=== PATIENT | female | born 1975 | race Two or more races ===

== ENCOUNTER 2017-01-11 18:39 | Emergency (ER) | payer MEDICAID, OTHER ==
[2017-01-11 18:49] VITALS: BP 132/83
[2017-01-11 19:07] LABS: BASOPHILS # (AUTO) 0.1 10^3/uL (0.0-0.1); BASOPHILS % (AUTO) 0.8 %; EOSINOPHILS # (AUTO) 0.2 10^3/uL (0.0-0.7); EOSINOPHILS % (AUTO) 2.5 %; HCT - HEMATOCRIT 41.9 % (37.0-47.0); HGB - HEMOGLOBIN 14.4 g/dL (12.0-16.0); LYMPHOCYTES # (AUTO) 2.4 10^3/uL (1.5-3.5); LYMPHOCYTES % (AUTO) 30.5 %; MEAN CORPUSCULAR HEMOGLOBIN 31.9 pg (27.0-31.0); MEAN CORPUSCULAR HGB CONC 34.3 g/dL (32.0-36.0); MEAN CORPUSCULAR VOLUME 92.9 fL (81.0-99.0); MONOCYTES # (AUTO) 0.4 10^3/uL (0.0-1.0); MONOCYTES % (AUTO) 5.3 %; NEUTROPHILS # (AUTO) 4.7 10^3/uL (1.5-6.6); NEUTROPHILS % (AUTO) 60.9 %; RED BLOOD COUNT 4.51 10^6/uL (4.20-5.40); RED CELL DISTRIBUTION WIDTH 13.1 % (12.0-15.0); UNCORRECTED WHITE BLOOD COUNT 7.7 x10^3/uL; WHITE BLOOD COUNT 7.7 x10^3/uL (4.8-10.8)
[2017-01-11 19:14] LABS: ALBUMIN/GLOBULIN RATIO 1.4 (1.0-2.2); BILIRUBIN,TOTAL 0.6 mg/dL (0.2-1.0); CALCIUM 9.2 mg/dL (8.5-10.3); CREATININE 0.8 mg/dL (0.4-1.0); POTASSIUM 3.5 mmol/L (3.5-5.0); TOTAL PROTEIN 7.7 g/dL (6.7-8.2)
[2017-01-11 19:45] LABS: BILIRUBIN,URINE NEGATIVE (NEGATIVE); PH,URINE 5.5 PH (5.0-7.5)
[2017-01-11 19:48] LABS: HCG UR QUAL NEGATIVE; UA CHARGE (STRIP ONLY) YES; UR CULTURE IF IND NOT INDICATED
--- NOTE | 2017-01-11 19:52 | ED Physician Documentation ---
PD HPI ABD PAIN - Stated complaint Stated Complaint: STOMACH PX - Chief complaint Chief Complaint: Abd Pain - History obtained from History obtained from: Patient, Friend - History of Present Illness Timing - onset: How many weeks ago (several) Timing - duration: Weeks Timing - details: Gradual onset, Waxing and waning Pain level max: 5 Pain level now: 3 Quality: Aching, Dull, Pain Improved by: Other (nothing) Worsened by: Eating Associated symptoms: Nausea. No: Fever, Vomiting, Hematemesis, Diarrhea, Constipation, Melena, Hematochezia, Dysuria Similar symptoms before: Has not had sx before Recently seen: Not recently seen - Additional information Additional information: Patient is a 41-year-old female who presents to the emergency department with epigastric abdominal pain for the past several weeks. Worse with eating or drinking. She recently returned from a visit to [place]. No fever. No diarrhea. Review of Systems Constitutional: denies: Fever, Chills GI: denies: Vomiting, Diarrhea, Hematemesis, Bloody / black stool : denies: Now EGA Skin: denies: Rash PD PAST MEDICAL HISTORY - Past Medical History Past Medical History: Yes Cardiovascular: Arrhythmia (SVT) Respiratory: None Neuro: Headache/migraine - Past Surgical History Past Surgical History: Yes HEENT: Tonsil/Adenoidectomy - Present Medications Home Medications: Ambulatory Orders Medication Instructions Recorded Confirmed Famotidine [Pepcid] 20 mg PO BID #60 tablet 01/11/17 Omeprazole [PriLOSEC] 20 mg PO DAILY #30 capsule 01/11/17 Sucralfate [Carafate] 1 gm PO ACHS #60 tablet 01/11/17 - Allergies Allergies/Adverse Reactions: Allergies Allergy/AdvReac Type Severity Reaction Status Date / Time No Known Drug Allergies Allergy Verified 03/04/16 09:11 - Social History Does the pt smoke?: No Smoking Status: Never smoker Does the pt drink ETOH?: Yes Does the pt have substance abuse?: No - Immunizations Immunizations are current?: Yes PD ED PE NORMAL - Vitals Vital signs reviewed: Yes - General General: Alert and oriented X 3, No acute distress, Well developed/nourished - HEENT HEENT: Moist mucous membranes - Neck Neck: Supple, no meningeal sign - Cardiac Cardiac: RRR, Strong equal pulses - Respiratory Respiratory: No respiratory distress, Clear bilaterally - Abdomen Abdomen: Soft, Non distended, Other (Tender palpation epigastric and right upper quadrant without peritoneal signs) - Back Back: No CVA TTP, No spinal TTP - Derm Derm: Warm and dry, No rash - Neuro Neuro: Alert and oriented X 3 - Psych Psych: Normal mood, Normal affect Results - Vitals Vitals: Vital Signs - 24 hr 01/11/17 18:45 Temperature 36.9 C Heart Rate 101 H Respiratory 15 Rate Blood Pressure 132/83 H O2 Saturation 100 Oxygen O2 Source Room air - Labs Labs: Laboratory Tests 01/11/17 01/11/17 01/11/17 18:51 18:51 19:36 WBC 7.7 RBC 4.51 Hgb 14.4 Hct 41.9 MCV 92.9 MCH 31.9 H MCHC 34.3 RDW 13.1 Plt Count 228 MPV 8.0 Neut # 4.7 Lymph # 2.4 Jerome # 0.4 Eos # 0.2 Baso # 0.1 Absolute Nucleated RBC 0.00 Nucleated RBCs 0.0 Sodium 139 Potassium 3.5 Chloride 104 Carbon Dioxide 31 Anion Gap 4.0 L BUN 17 Creatinine 0.8 Estimated GFR (MDRD) 79 L Glucose 98 Calcium 9.2 Total Bilirubin 0.6 AST 18 ALT 15 Alkaline Phosphatase 59 Total Protein 7.7 Albumin 4.5 Globulin 3.2 Albumin/Globulin Ratio 1.4 Lipase 64 H Urine Color YELLOW Urine Clarity CLEAR Urine pH 5.5 Ur Specific [place] 1.025 Urine Protein NEGATIVE Urine Glucose (UA) NEGATIVE Urine Ketones NEGATIVE Urine Occult Blood NEGATIVE Urine Nitrite NEGATIVE Urine Bilirubin NEGATIVE Urine Urobilinogen 0.2 (NORMAL) Ur Leukocyte Esterase NEGATIVE Ur Microscopic Review NOT INDICATED Urine Culture Comments NOT INDICATED Urine HCG, Qual NEGATIVE - Rads (name of study) RUQ US Radiology: Prelim report reviewed, EMP read contemporaneously, See rad report ( normal) PD MEDICAL DECISION MAKING - ED course Complexity details: reviewed results, re-evaluated patient, considered differential, d/w patient ED course: Patient is a 41-year-old female who presents to the emergency department with what appears to be epigastric pain, likely secondary to gastroesophageal reflux disease versus peptic ulcer disease. Symptoms resolved with GI cocktail. No acute findings on right upper quadrant ultrasound. She is well-appearing, nontoxic. Afebrile. Will place on a PPI and H2 heidi for home and have her follow-up with her doctor. Counseled regarding dietary changes. Patient counseled regarding signs and symptoms for which I believe and urgent re- evaluation would be necessary. Patient with good understanding of and agreement to plan and is comfortable going home at this time This document was made in part using voice recognition software. While efforts are made to proofread this document, sound alike and grammatical errors may occur. Departure - Departure Disposition: Home, Self Care Clinical Impression: Abdominal pain Qualifiers: Abdominal location: epigastric Qualified Code(s): R10.13 - Epigastric pain Gastritis Qualifiers: Gastritis type: unspecified gastritis Chronicity: acute Gastritis bleeding: without bleeding Qualified Code(s): K29.00 - Acute gastritis without bleeding Condition: Good Instructions: ED PUD Vs Gastritis Follow-Up: your,doctor in 1 week [Other] Prescriptions: Sucralfate [Carafate] 1 gm PO ACHS #60 tablet Famotidine [Pepcid] 20 mg PO BID #60 tablet Omeprazole [PriLOSEC] 20 mg PO DAILY #30 capsule Comments: Return if you worsen. You can use Tylenol as needed for pain. This will take some time for your stomach to heal. Avoid anything spicy, fried, acidic in your diet. Discharge Date/Time: 01/11/17 20:53
[2017-01-11] MEDS ORDERED: FAMOTIDINE 20 MG TABLET ONE (20:00)
[2017-01-11] MEDS ORDERED: SUCRALFATE 1 GM/10 ML UDC ONE (20:00)
[2017-01-11] MEDS: FAMOTIDINE 20 MG TABLET PO STA (20:01)
[2017-01-11] MEDS ORDERED: LIDOCAINE VISCOUS 2% 15 ML UDC MM ONE (20:01)
[2017-01-11] MEDS ORDERED: MAG HYDROX/AL HYDROX/SIMETH 30 ML UDC ONE (20:01)
[2017-01-11] MEDS: MAG HYDROX/AL HYDROX/SIMETH 30 ML UDC PO STA (20:02)
[2017-01-11] MEDS: SUCRALFATE 1 GM/10 ML UDC PO STA (20:02)
[2017-01-11] MEDS: LIDOCAINE VISCOUS 2% 15 ML UDC MM STA (20:02)
[2017-01-11] MEDS ORDERED: PANTOPRAZOLE 40 MG VIAL ONE (20:47)
[2017-01-11] MEDS: PANTOPRAZOLE 40 MG VIAL IVP STA (20:51)
--- NOTE | 2017-01-11 21:02 | Ultrasound Preliminary Report ---
Exam: US ABDOMEN LIMITED IMPRESSION: Normal. No cholelithiasis or cholecystitis. [facility] SITE ID: [id number]
--- NOTE | 2017-01-11 21:05 | Ultrasound Report ---
EXAM: ABDOMEN ULTRASOUND LIMITED, RUQ EXAM DATE: 01/11/2017 08:44 PM. CLINICAL HISTORY: RUQ pain. COMPARISON: None. TECHNIQUE: Real-time scanning was performed with static images obtained. FINDINGS: Liver: Normal in size and echotexture. 15.3 cm. Main portal vein flow: Hepatopetal. Gallbladder: Contracted. No stones, wall thickening, or sonographic Mckeon's sign. Biliary System: CBD measures 5 mm. No intrahepatic or extrahepatic ductal dilatation. Other: The visualized pancreas and right kidney are unremarkable. No free fluid. IMPRESSION: Normal. No cholelithiasis or cholecystitis. [facility] Referring Provider Line: [phone] SITE ID: [id number]
== END 2017-01-11 20:53 | disposition home or self-care (01) ==
LOC: ED 18:39
DX: R10.13 Epigastric pain (principal); K29.00 Acute gastritis without bleeding
CPT/HCPCS: 36415; 76705; 80053; 81001; 81003; 81025; 83690; 85025; 87086; 96374; 99283; 99284

== ENCOUNTER 2017-06-24 17:29 | Emergency (ER) | payer BC, OTHER ==
[2017-06-24 17:55] VITALS: BP 126/80
--- NOTE | 2017-06-24 18:13 | ED Physician Documentation ---
History of Present Illness - Stated complaint Stated Complaint: FEVER/RASH - Chief complaint Chief Complaint: General - History obtained from History obtained from: Patient - History of Present Illness Timing: Other (2 weeks of aches and chills and just feeling off and now 2 days of an itchy painful rash on the left side of her groin she has had a single sexual partner recently and is concerned about STDs.) Review of Systems Constitutional: reports: Chills, Fatigue Cardiac: denies: Chest pain / pressure, Palpitations Respiratory: reports: Cough GI: denies: Abdominal Pain, Vomiting PD PAST MEDICAL HISTORY - Past Medical History Cardiovascular: Arrhythmia (SVT) Respiratory: None Neuro: Headache/migraine - Past Surgical History Past Surgical History: Yes HEENT: Tonsil/Adenoidectomy - Present Medications Home Medications: Ambulatory Orders Medication Instructions Recorded Confirmed Acyclovir 400 mg PO TID #30 tablet 06/24/17 - Allergies Allergies/Adverse Reactions: Allergies Allergy/AdvReac Type Severity Reaction Status Date / Time No Known Drug Allergies Allergy Verified 06/24/17 17:45 - Social History Does the pt smoke?: No Smoking Status: Never smoker Does the pt drink ETOH?: Yes Does the pt have substance abuse?: No - Immunizations Immunizations are current?: Yes PD ED PE NORMAL - Vitals Vital signs reviewed: Yes - General General: Alert and oriented X 3, No acute distress - HEENT HEENT: Pharynx benign - Cardiac Cardiac: RRR, No murmur - Respiratory Respiratory: No respiratory distress, Clear bilaterally - Abdomen Abdomen: Non tender - Female Female : Management Rep present (Ivy Vedrin RN), Other (Genital herpes on the left labia, no pelvic tenderness or discharge.) - Neuro Neuro: Alert and oriented X 3, Normal speech - Psych Psych: Normal mood, Normal affect Results - Vitals Vitals: Vital Signs - 24 hr 06/24/17 17:36 Temperature 37.3 C Heart Rate 105 H Respiratory 20 Rate Blood Pressure 126/80 O2 Saturation 98 Oxygen O2 Source Room air Departure - Departure Disposition: 01 Home, Self Care Clinical Impression: Genital herpes Qualifiers: Herpes simplex infection site: vulvovaginitis Qualified Code(s): A60.04 - Herpesviral vulvovaginitis Condition: Good Record reviewed to determine appropriate education?: Yes Instructions: ED Herpes Simplex Virus Type 2 Prescriptions: Acyclovir 400 mg PO TID #30 tablet Comments: Call your doctor to arrange a follow-up appointment, make the next available appointment. In the interim, return anytime if worse or if new symptoms develop.
[2017-06-24 18:42] LABS: BILIRUBIN,URINE NEGATIVE (NEGATIVE); GLUCOSE, URINE (UA) NEGATIVE (NEGATIVE); KETONES,URINE (UA) TRACE mg/dL (NEGATIVE); LEUKOCYTE ESTERASE, URINE NEGATIVE (NEGATIVE); NITRITE,URINE NEGATIVE (NEGATIVE); OCCULT BLOOD,URINE NEGATIVE (NEGATIVE); PROTEIN,URINE NEGATIVE (NEGATIVE); UROBILINOGEN,URINE 0.2 (NORMAL) E.U./dL (NORMAL)
[2017-06-24 18:48] LABS: CLARITY,URINE CLEAR (CLEAR)
== END 2017-06-24 18:41 | disposition home or self-care (01) ==
LOC: ED 17:29
DX: A60.04 Herpesviral vulvovaginitis (principal)
CPT/HCPCS: 81001; 81003; 87086; 87491; 87591; 99283

== ENCOUNTER 2017-11-02 07:07 | Emergency (ER) | payer BC ==
--- NOTE | 2017-11-02 07:57 | ED Physician Documentation ---
PD HPI CHEST PAIN - Stated complaint Stated Complaint: CHEST PX - Chief complaint Chief Complaint: Cardiac - History obtained from History obtained from: Patient - History of Present Illness Timing - onset: How many days ago (3) Timing - onset during: Sleep, Rest Timing - details: Abrupt onset, Still present (lessened once she got up) Quality: Pressure, Aching Location: Substernal, Epigastric Associated symptoms: Shortness of air. No: Nausea, Vomiting, Feeling faint / dizzy, General Weakness Similar symptoms before: Has not had sx before (had had irregular heart beat in the past and Morton palsy, wiht concern of it being lacunar infarct instead ( questaion on MRI) so had CVA workup including ECHO and now just had stress test as part of that. Had not been having any chest pain. Used to take long walks but had not been exercising lately due to the question of CVA and was to limit exercise pending workup.) Recently seen: Clinic (had stress test 2 days ago and has not felt well since. Having some substernal discomfort and weakness. Had the stress test as further testing post Morton vs lacunar stroke recently, with cardiac workup ongoing. She had not heard results on stress test.) Review of Systems Constitutional: denies: Fever, Chills, Myalgias Nose: denies: Rhinorrhea / runny nose, Congestion Throat: denies: Sore throat Cardiac: reports: Chest pain / pressure (today). denies: Palpitations, Pedal edema, Calf pain Respiratory: denies: Dyspnea, Cough GI: denies: Abdominal Pain, Nausea, Vomiting : denies: Dysuria, Frequency Skin: denies: Rash, Lesions Musculoskeletal: denies: Neck pain, Back pain PD PAST MEDICAL HISTORY - Past Medical History Past Medical History: Yes Cardiovascular: Arrhythmia Respiratory: None - Past Surgical History Past Surgical History: Yes HEENT: Tonsil/Adenoidectomy - Present Medications Home Medications: Ambulatory Orders Medication Instructions Recorded Confirmed Acyclovir 400 mg PO TID #30 tablet 06/24/17 Famotidine [Pepcid] 20 mg PO ONCE #30 tablet 11/02/17 Lidocaine Viscous 2% [Xylocaine 5 ml PO Q4H PRN #1 bottle 11/02/17 Viscous 2%] - Allergies Allergies/Adverse Reactions: Allergies Allergy/AdvReac Type Severity Reaction Status Date / Time No Known Drug Allergies Allergy Verified 06/24/17 17:45 - Social History Does the pt smoke?: No Smoking Status: Never smoker Does the pt drink ETOH?: Yes Does the pt have substance abuse?: No - Family History Family history: reports: Non contributory - Immunizations Immunizations are current?: Yes PD ED PE NORMAL - Vitals Vital signs reviewed: Yes - General General: Alert and oriented X 3, No acute distress, Well developed/nourished - HEENT HEENT: Moist mucous membranes, Pharynx benign - Neck Neck: Supple, no meningeal sign, No adenopathy - Cardiac Cardiac: RRR, No murmur - Respiratory Respiratory: No respiratory distress, Clear bilaterally - Abdomen Abdomen: Normal bowel sounds, Soft, Non distended, No organomegaly, Other (mild tender epigastric) - Back Back: No CVA TTP - Derm Derm: Normal color, Warm and dry - Extremities Extremities: No deformity, No tenderness to palpate, Normal ROM s pain, No edema , No calf tenderness / cord - Neuro Neuro: Alert and oriented X 3, No motor deficit, Normal speech Results - Vitals Vitals: Vital Signs - 24 hr 11/02/17 11/02/17 07:10 10:18 Temperature 36.3 C L Heart Rate 94 79 Respiratory 18 12 Rate Blood Pressure 120/81 H 112/86 H O2 Saturation 100 100 Oxygen O2 Source Room air - Labs Labs: Laboratory Tests 11/02/17 11/02/17 11/02/17 08:12 08:12 08:12 WBC 7.7 RBC 4.26 Hgb 13.3 Hct 39.9 MCV 93.7 MCH 31.1 H MCHC 33.2 RDW 12.7 Plt Count 211 MPV 8.2 Neut # (Auto) 5.5 Lymph # (Auto) 1.4 L Stephens # (Auto) 0.4 Eos # (Auto) 0.3 Baso # (Auto) 0.0 Absolute Nucleated RBC 0.00 Nucleated RBC % 0.1 Sodium 136 Potassium 4.8 Chloride 102 Carbon Dioxide 28 Anion Gap 6.0 BUN 12 Creatinine 0.6 Estimated GFR (MDRD) 110 Glucose 98 Calcium 8.9 Magnesium 2.0 Total Bilirubin 0.6 AST 32 ALT 42 Alkaline Phosphatase 47 Troponin I < 0.04 B-Natriuretic Peptide Total Protein 7.1 Albumin 3.8 Globulin 3.3 Albumin/Globulin Ratio 1.2 Lipase 59 H 11/02/17 08:12 WBC RBC Hgb Hct MCV MCH MCHC RDW Plt Count MPV Neut # (Auto) Lymph # (Auto) Stephens # (Auto) Eos # (Auto) Baso # (Auto) Absolute Nucleated RBC Nucleated RBC % Sodium Potassium Chloride Carbon Dioxide Anion Gap BUN Creatinine Estimated GFR (MDRD) Glucose Calcium Magnesium Total Bilirubin AST ALT Alkaline Phosphatase Troponin I B-Natriuretic Peptide 15 Total Protein Albumin Globulin Albumin/Globulin Ratio Lipase PD MEDICAL DECISION MAKING - ED course Complexity details: re-evaluated patient (felt much better after GI cocktail. ) , considered differential, d/w patient - Sepsis Event Vital Signs: Vital Signs - 24 hr 11/02/17 11/02/17 07:10 10:18 Temperature 36.3 C L Heart Rate 94 79 Respiratory 18 12 Rate Blood Pressure 120/81 H 112/86 H O2 Saturation 100 100 Oxygen O2 Source Room air Departure - Departure Disposition: 01 Home, Self Care Clinical Impression: Chest pain due to GERD Chest pain Qualifiers: Chest pain type: precordial pain Qualified Code(s): R07.2 - Precordial pain Condition: Stable Record reviewed to determine appropriate education?: Yes Instructions: ED Chest Pain NonCardiac, ED GERD Follow-Up: Jackelyn Mercedes MD [Primary Care Provider] - Prescriptions: Famotidine [Pepcid] 20 mg PO ONCE #30 tablet Lidocaine Viscous 2% [Xylocaine Viscous 2%] 5 ml PO Q4H PRN #1 bottle PRN Reason: Pain Comments: Your tests today look good without any signs of heart injury or heart failure and your chest x-ray does not show any signs of lung process going on. I presume your pain is related to irritated stomach and esophagus. Take famotidine daily for the next 2-3 weeks. Add antacids such as Mylanta or Maalox if needed for discomfort and you can add lidocaine to that if needed. Recheck if not better over the next few days. Forms: Activity restrictions Discharge Date/Time: 11/02/17 10:44
[2017-11-02] MEDS ORDERED: LIDOCAINE VISCOUS 2% 15 ML UDC MM STA (08:10)
[2017-11-02] MEDS ORDERED: MAG HYDROX/AL HYDROX/SIMETH 30 ML UDC PO STA (08:10)
[2017-11-02] MEDS ORDERED: KETOROLAC 60 MG/2 ML VIAL IVP STA (08:10)
[2017-11-02 08:28] LABS: BASOPHILS % (AUTO) 0.6 %; EOSINOPHILS # (AUTO) 0.3 10^3/uL (0.0-0.7); EOSINOPHILS % (AUTO) 3.6 %; HGB - HEMOGLOBIN 13.3 g/dL (12.0-16.0); LYMPHOCYTES # (AUTO) 1.4 10^3/uL (1.5-3.5); LYMPHOCYTES % (AUTO) 18.2 %; MEAN CORPUSCULAR HEMOGLOBIN 31.1 pg (27.0-31.0); MEAN CORPUSCULAR HGB CONC 33.2 g/dL (32.0-36.0); MEAN CORPUSCULAR VOLUME 93.7 fL (81.0-99.0); MEAN PLATELET VOLUME 8.2 fL (7.9-10.8); MONOCYTES # (AUTO) 0.4 10^3/uL (0.0-1.0); MONOCYTES % (AUTO) 5.6 %; NEUTROPHILS # (AUTO) 5.5 10^3/uL (1.5-6.6); PLT - PLATELET COUNT 211 10^3/uL (130-450); RED BLOOD COUNT 4.26 10^6/uL (4.20-5.40); RED CELL DISTRIBUTION WIDTH 12.7 % (12.0-15.0); WHITE BLOOD COUNT 7.7 x10^3/uL (4.8-10.8)
[2017-11-02 08:48] LABS: ALBUMIN 3.8 g/dL (3.2-5.5); ALBUMIN/GLOBULIN RATIO 1.2 (1.0-2.2); BILIRUBIN,TOTAL 0.6 mg/dL (0.2-1.0); CALCIUM 8.9 mg/dL (8.5-10.3); CREATININE 0.6 mg/dL (0.4-1.0); TOTAL PROTEIN 7.1 g/dL (6.7-8.2)
--- NOTE | 2017-11-02 09:20 | XRAY Report ---
Procedure Date: 11/02/2017 Accession Number: [id number] / [id number] Procedure: XR - Chest 2 View X-Ray CPT Code: 58432 FULL RESULT: EXAM: CHEST RADIOGRAPHY EXAM DATE: 11/02/2017 09:02 AM. CLINICAL HISTORY: Substernal chest pain this morning onset 6 am. COMPARISON: None. TECHNIQUE: 2 views. FINDINGS: Lungs/Pleura: No focal opacities evident. No pleural effusion. No pneumothorax. Normal volumes. Mediastinum: Heart and mediastinal contours are unremarkable. Other: None. IMPRESSION: Normal 2-view chest radiography. [facility]
[2017-11-02] MEDS ORDERED: FAMOTIDINE 20 MG TABLET PO STA (10:10)
[2017-11-02 10:19] VITALS: BP 112/86
== END 2017-11-02 10:44 | disposition home or self-care (01) ==
LOC: ED 07:07
DX: K21.9 Gastro-esophageal reflux disease without esophagitis (principal); R07.2 Precordial pain; I49.9 Cardiac arrhythmia, unspecified
CPT/HCPCS: 36415; 71046; 80053; 83690; 83735; 83880; 84484; 85025; 93005; 96374; 99283; A9270

== ENCOUNTER 2018-03-04 10:26 | Emergency (ER) | payer BC ==
[2018-03-04] MEDS ORDERED: KETOROLAC 60 MG/2 ML VIAL IVP STA (11:05)
[2018-03-04] MEDS ORDERED: SODIUM CHLORIDE 0.9% 1,000 ML IV ONE (11:05)
--- NOTE | 2018-03-04 11:09 | ED Physician Documentation ---
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 denies: Numbness Endocrine: denies: Easy bruising / bleeding Immunocompromised: denies: Immunocompromised PD PAST MEDICAL HISTORY - Past Medical History Cardiovascular: Arrhythmia Respiratory: None - Past Surgical History Past Surgical History: Yes HEENT: Tonsil/Adenoidectomy - Present Medications Home Medications: Ambulatory Orders Medication Instructions Recorded Confirmed Acyclovir 400 mg PO TID #30 tablet 06/24/17 Famotidine [Pepcid] 20 mg PO ONCE #30 tablet 11/02/17 Lidocaine Viscous 2% [Xylocaine 5 ml PO Q4H PRN #1 bottle 11/02/17 Viscous 2%] Lidocaine Patch 5% [Lidoderm Patch] 1 each TOP DAILY PRN #10 patch 03/04/18 - Allergies Allergies/Adverse Reactions: Allergies Allergy/AdvReac Type Severity Reaction Status Date / Time No Known Drug Allergies Allergy Verified 03/04/18 10:34 - Social History Does the pt smoke?: No Smoking Status: Never smoker Does the pt drink ETOH?: Yes Does the pt have substance abuse?: No - Immunizations Immunizations are current?: Yes PD ED PE NORMAL - Vitals Vital signs reviewed: Yes - General General: Alert and oriented X 3 - HEENT HEENT: PERRL, EOMI, Other (R facial droop - not new per pt) - Neck Neck: Supple, no meningeal sign, Other (TTP upepr L trap region) - Cardiac Cardiac: RRR - Respiratory Respiratory: No respiratory distress, Clear bilaterally - Abdomen Abdomen: Soft, Non tender - Neuro Neuro: Alert and oriented X 3, Other (LUE shoulder ABD elbow felxeion ext, cancer center director wrist ABD finger ABD thumbs up and OK all 5/5n nl sensation, brisk cap refill). 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 rec fup in 6 m - did not receive copy of the fup MRI from October but pt states it got done - she does not k now results either but will call her neurologist in any case her weakness was resolved in ER she had mm tightness to back of trap and neck region she felt better after fluids and toradol and feels ready to go home Departure - Departure Disposition: 01 Home, Self Care Clinical Impression: Dehydration, Paresthesia Trapezius strain Qualifiers: Encounter type: initial encounter Laterality: left Qualified Code(s): S46.812A - Strain of other muscles, fascia and tendons at shoulder and upper arm level, left arm, initial encounter Headache Qualifiers: Headache type: unspecified Headache chronicity pattern: acute headache Intractability: not intractable Qualified Code(s): R51 - Headache Condition: Good Instructions: ED Dehydration, ED Cephalgia Unspecified Follow-Up: Jackelyn Mercedes MD [Primary Care Provider] - Prescriptions: Lidocaine Patch 5% [Lidoderm Patch] 1 each TOP DAILY PRN #10 patch PRN Reason: Pain Comments: Drink plenty of fluids Tylenol and lidocaine patches (up to 12 hr a a day) as needed for pain Follow up with your neurologist about the more recent MRI results Return if worse
[2018-03-04 13:09] VITALS: BP 115/75
== END 2018-03-04 13:56 | disposition home or self-care (01) ==
LOC: ED 10:26
DX: E86.0 Dehydration (principal); R20.2 Paresthesia of skin; S46.812A Strain of other muscles, fascia and tendons at shoulder and upper arm level, left arm, initial encounter; X58.XXXA Exposure to other specified factors, initial encounter; Y93.42 Activity, yoga; R51 Headache
CPT/HCPCS: 96361; 96374; 99283; 99284

== ENCOUNTER 2018-05-07 04:21 | Emergency (ER) | payer BC ==
[2018-05-07 04:34] VITALS: BP 118/72
[2018-05-07] MEDS ORDERED: BENZOCAINE/MENTHOL LOZENGE MM STA (04:55)
[2018-05-07] MEDS ORDERED: predniSONE 20 MG TABLET PO STA (04:55)
--- NOTE | 2018-05-07 05:06 | ED Physician Documentation ---
History of Present Illness - Stated complaint Stated Complaint: SORE THROAT - Chief complaint Chief Complaint: Heent - Additonal information Additional information: hx from pt 43 f denies preg hx [place] palsy to ED with sore throat on right side and neck lumps on R side states seen in UC already and rapid strep was neg no cough NVD abd pain Review of Systems Constitutional: denies: Fever, Chills Throat: reports: Sore throat GI: denies: Abdominal Pain, Nausea, Vomiting, Diarrhea : denies: Now EGA Musculoskeletal: reports: Neck pain (right side) Endocrine: denies: Easy bruising / bleeding Immunocompromised: denies: Immunocompromised PD PAST MEDICAL HISTORY - Past Medical History Cardiovascular: Arrhythmia Respiratory: None - Past Surgical History Past Surgical History: Yes HEENT: Tonsil/Adenoidectomy - Present Medications Home Medications: Ambulatory Orders Medication Instructions Recorded Confirmed Acyclovir 400 mg PO TID #30 tablet 06/24/17 Famotidine [Pepcid] 20 mg PO ONCE #30 tablet 11/02/17 Lidocaine Viscous 2% [Xylocaine 5 ml PO Q4H PRN #1 bottle 11/02/17 Viscous 2%] Lidocaine Patch 5% [Lidoderm Patch] 1 each TOP DAILY PRN #10 patch 03/04/18 Amoxicillin 500 mg PO Q8HR #30 capsule 05/07/18 - Allergies Allergies/Adverse Reactions: Allergies Allergy/AdvReac Type Severity Reaction Status Date / Time No Known Drug Allergies Allergy Verified 03/04/18 10:34 - Social History Does the pt smoke?: No Smoking Status: Never smoker Does the pt drink ETOH?: Yes Does the pt have substance abuse?: No - Immunizations Immunizations are current?: Yes PD ED PE NORMAL - Vitals Vital signs reviewed: Yes - General General: Alert and oriented X 3 - HEENT HEENT: Moist mucous membranes. No: Ears normal (dull elysia s erythema), Pharynx benign (right sided erythema, no exudate, s/p tonsillectomy) - Neck Neck: Other (anterior and posterior right sided adenopathy, no pain with tracheal manipulation) - Cardiac Cardiac: RRR - Respiratory Respiratory: No respiratory distress - Abdomen Abdomen: Soft, Non tender, No organomegaly Results - Vitals Vitals: Vital Signs - 24 hr 05/07/18 05/07/18 04:25 04:33 Temperature 36.8 C Heart Rate 87 98 Respiratory 18 18 Rate Blood Pressure 113/81 H 118/72 O2 Saturation 97 Oxygen O2 Source Room air - Labs Labs: Laboratory Tests 05/07/18 05:38 Infectious [place] Assay NEGATIVE Departure - Departure Disposition: Home, Self Care Clinical Impression: Lymphadenopathy of right cervical region Condition: Good Instructions: ED Cervical Adenitis Abx Tx Follow-Up: Jackelyn Mercedes MD [Primary Care Provider] - Prescriptions: Amoxicillin 500 mg PO Q8HR #30 capsule Comments: The mono test was negative I have prescribed antibiotics for the inflamed lymph nodes Recommend motrin for pain and swelling It is very very important that you follow up with your PMD for a recheck in about 2 weeks to make sure the swollen lymph nodes have subsided. Persistent swelling of the lymph nodes can be to other disease such as cancer and would need further investigation
== END 2018-05-07 06:30 | disposition home or self-care (01) ==
LOC: ED 04:21
DX: R59.0 Localized enlarged lymph nodes (principal); G51.0 Bell's palsy
CPT/HCPCS: 36415; 86308; 99283; A9270; J7512